=== PATIENT | male | born 1970 | race Hispanic/Latino ===

== ENCOUNTER 2020-08-01 05:40 | Emergency (ER) | payer BC, OTHER ==
[~2020-08-01 05:40] MED LIST: ASPI-556 PO; CHOL500051 PO; CLOP75TA32 PO; DOMPERIDONE PO; FAMO40TA7 PO; FENO145T PO; FISH1CAP63 PO; ISOS30TA11 PO; LISI-617 PO; LORA10TA7 PO; METO-408 PO; NITROGLYCERINE SL; NOVOLOG; PANT40TA54 PO; SIMV40TA59 PO
[2020-08-01 06:03] LABS: BASOPHILS % (AUTO) 0.6 % (0.0-5.0); EOSINOPHILS % (AUTO) 1.2 % (0.0-8.0); HEMATOCRIT 38.2 % (42-54); LYMPHOCYTES % (AUTO) 40.9 % (21.0-51.0); MEAN CORPUSCULAR HEMOGLOBIN 30.7 pg (27.0-33.0); MEAN CORPUSCULAR VOLUME 92.9 fL (79-99); MONOCYTES % (AUTO) 5.4 % (3.0-13.0); NEUTROPHILS % (AUTO) 51.5 % (40.0-77.0); PLATELET COUNT (AUTO) 236 K/uL (130-400); RED BLOOD CELL COUNT(AUTO) 4.11 MIL/uL (4.50-6.20); RED CELL DISTRIBUTION WIDTH 13.7 % (11.0-15.5); WHITE BLOOD COUNT (AUTO) 10.6 K/uL (4.8-10.8)
[2020-08-01 06:21] LABS: CREATININE 1.9 mg/dL (0.5-1.5); POTASSIUM 3.4 mmol/L (3.5-5.1)
[2020-08-01] MEDS ORDERED: ONDANSETRON HCL 4 MG/2 ML VIAL ONE (06:43)
[2020-08-01] MEDS ORDERED: METOCLOPRAMIDE 10 MG/2 ML VIAL ONE (08:00)
== END 2020-08-01 09:39 | disposition home or self-care (01) ==
LOC: EDH 05:40
DX: R00.1 Bradycardia, unspecified (principal); I48.91 Unspecified atrial fibrillation; E11.9 Type 2 diabetes mellitus without complications; I25.2 Old myocardial infarction; Z91.041 Radiographic dye allergy status; Z91.013 Allergy to seafood
CPT/HCPCS: 36415; 80048; 84484 ×2; 85025; 93005 ×2; 96361; 96374; 96375; 99284; J2405; J2765

== ENCOUNTER 2020-08-22 07:03 | Day surgery (SDC) | payer BC ==
[2020-08-18 14:30] LABS: BASOPHILS % (AUTO) 0.7 % (0.0-5.0); EOSINOPHILS % (AUTO) 3.7 % (0.0-8.0); HEMATOCRIT 40.4 % (42-54); LYMPHOCYTES % (AUTO) 41.3 % (21.0-51.0); MEAN CORPUSCULAR HEMOGLOBIN 30.6 pg (27.0-33.0); MEAN CORPUSCULAR HGB CONC 33.7 g/dL (32.0-36.0); MONOCYTES % (AUTO) 7.7 % (3.0-13.0); NEUTROPHILS % (AUTO) 46.2 % (40.0-77.0); PLATELET COUNT (AUTO) 261 K/uL (130-400); RED BLOOD CELL COUNT(AUTO) 4.44 MIL/uL (4.50-6.20); RED CELL DISTRIBUTION WIDTH 13.6 % (11.0-15.5); WHITE BLOOD COUNT (AUTO) 5.4 K/uL (4.8-10.8)
[2020-08-18 14:41] LABS: CREATININE 1.5 mg/dL (0.5-1.5); POTASSIUM 4.6 mmol/L (3.5-5.1)
[2020-08-18 14:48] LABS: INR 1.18 (0.85-1.15); PROTHROMBIN TIME 12.7 SEC (9.6-11.6)
[2020-08-18 14:49] LABS: PARTIAL THROMBOPLASTIN TIME 29.1 SEC (26.3-35.5)
[2020-08-21 09:54] VITALS: BP 123/79
[~2020-08-22] VITALS: Ht 170.2 cm; Wt 97.3 kg
[2020-08-22] VITALS (9 sets, daily range): BP systolic 102–132; BP diastolic 68–80
[~2020-08-22 07:03] MED LIST changes: +ATOR40TA69 PO; -CHOL500051 PO; -CLOP75TA32 PO; +DILT360T14 PO; -DOMPERIDONE PO; +EVOL140S2 SQ; +FOLI1TAB85 PO; +INVOK100TB PO; -ISOS30TA11 PO; +ISOS30TA92 PO; -LISI-617 PO; +LISI20TA24 PO; +MONT10TA32 PO; -NITROGLYCERINE SL; -NOVOLOG; +OZEMPIC PO; +PIOG30TA70 PO; +RIVA2.5T PO; -SIMV40TA59 PO; +SODIUM CHLORIDE 0.9% 1000ML 1,000 ML IV SCH; +VITAMIN D2 PO
[2020-08-22] MEDS ORDERED: MIDAZOLAM HCL 1 MG/ML 2ML VIAL ONE ×2 (11:30→12:15)
[2020-08-22] MEDS ORDERED: MEPERIDINE-PF 50 MG/ML SYG ONE (11:30)
[2020-08-22] MEDS ORDERED: LIDOCAINE HCL 2% 20ML ONE (11:30)
[2020-08-22] MEDS ORDERED: ISOPROTERENOL HCL 0.2 MG/ML AMP/VIAL/BAG ONE (12:45)
[2020-08-22] MEDS ORDERED: PIND5 PO (13:52)
== END 2020-08-22 16:40 | disposition home or self-care (01) ==
LOC: DAH 07:03
PROVIDERS: ATTEND Internal Medicine Cardiovascular Disease
DX: R00.0 Tachycardia, unspecified (principal); R00.1 Bradycardia, unspecified; R00.2 Palpitations; I25.10 Atherosclerotic heart disease of native coronary artery without angina pectoris; I25.2 Old myocardial infarction; E11.9 Type 2 diabetes mellitus without complications; I10 Essential (primary) hypertension; E78.5 Hyperlipidemia, unspecified; Z95.5 Presence of coronary angioplasty implant and graft; Z79.01 Long term (current) use of anticoagulants; Z79.82 Long term (current) use of aspirin; Z79.899 Other long term (current) drug therapy
CPT/HCPCS: 36415; 80048; 82948 ×2; 85025; 85610; 85730; 93005; 93620; 93621; 93623; A4215; A4216; A4221; A4222; A4223 ×3; A4606; A4649 ×2; A4663; C1730 ×4; C1894 ×4; J1644; J2175; J2250 ×2; J3490 ×2; J7030; 99156; 99157